=== PATIENT | male | born 1945 | race Caucasian/White ===

== ENCOUNTER 2019-01-19 08:18 | Outpatient (CLI) | payer OTHER, MEDICARE ==
--- NOTE | 2019-01-24 08:52 | OP Clinic Progress Note ---
DATE OF VISIT: 01/19/2019 SUBJECTIVE: Jono Toussaint is a 73-year-old male presenting to the clinic today for followup of right ankle pain and right great toe pain. The patient has been placed in an ankle brace a few weeks ago and states that he was having some calf pain after being in the ankle brace all day. He states that his right great toe is feeling better but is not completely better at this time. He also did not notice that there was a small blister/bulla or cyst on the lateral side of his great toe on the right foot. That was a surprise for him today. The patient does not admit to any fevers, chills, nausea, vomiting, shortness of breath or chest pain. He has very mild pain only at times when walking on that right great toe now. He is having pain in the right ankle, however, and would like to consider an injection today to see if it can help it feel better. OBJECTIVE: Vitals: Temperature 98.4 degrees Fahrenheit, heart rate 68, respiration rate 22, blood pressure 149/77. O2 saturation is 96% on room air. Vascular: 2+ DP and PT pulses bilateral feet. Capillary refill time is less than 3 seconds to the toes bilaterally. There is no edema noted bilaterally. Dermatologic: There is no erythema or ecchymosis noted at this time. There is a bulla noted on the lateral aspect of the right great toe that is fairly firm that was deroofed today to reveal a gelatinous clear fluid. There was very mild fluid in it. There is mild warmth still around the right ankle area. Musculoskeletal: There is pain on palpation noted at the anterolateral ankle at the site where a portal for a lateral arthroscope would go. The patient has no pain with range of motion of the right great toe or the IPJ of the right great toe. He does have pain with direct palpation, more of a [id number] squeeze type of palpation of the right great toe. The pain is located on the lateral side of the right great toe, getting closer to that area where the bulla was. There was a notable palpable what feels like ganglion type cyst possibly noted in the lateral aspect of the right great toe, distal phalanx. There is no pain with range of motion of the ankle joint, but there is some pain in the sinus tarsi area with range of motion of the subtalar joint. Neurologic: Light touch sensation is intact to the toes bilaterally. ASSESSMENT AND PLAN: 1. Right lateral hallux bulla/possible cyst/open wound. 2. Right ankle pain. We discussed the x-rays today of the foot and ankle that we had previously and how they were essentially negative except for some arthritic changes. We discussed all of the locations of these arthritic changes. We discussed that due to the pain in the ankle at the anterolateral area as well as narrowing noted on the ankle x-rays, we decided to do an injection in the ankle of the right lower extremity. Risks and benefits were discussed with the patient including but not limited to bleeding, infections and steroid flare. PROCEDURE #1: Steroid injection into the right ankle was performed today. Alcohol swab was utilized to cleanse the right anterolateral ankle and an injection consisting of 1 cc of 2% lidocaine plain, 1 cc of 25% Marcaine plain, 0.5 cc of dexamethasone 4 mg/mL and 0.5 cc of Kenalog 40 mg/mL were injected into right ankle. The patient admitted immediate relief upon standing today. Hemostasis was obtained with pressure and a Band-Aid was applied. We discussed with the patient the importance of breaking into the ankle brace slowly and seeing if that helps his calf muscles feel any better as well. We will see if this helps to protect the ankle. If this does help, we will consider a custom AFO in order to have the patient go forward with the protection around the ankle. If this does not work then we will consider a steroid injection in the subtalar joint if this is not improving from the ankle joint injection today. We will also consider monitoring carefully the right great toe for any improvement or not. If it is not improving in the next three weeks with putting a spacer between the first and second toes to keep the pressure off that lateral side of the great toe then we will consider further imaging with an MRI to see if there is any sort of soft tissue mass inside the toe. If so, we will consider removal if needed. The patient is not having significant pain with the hammertoes bilaterally at this time, nor the bunion necessarily, so we will likely hold off on anything like that unless needed. The patient has no further questions or concerns and is planning on watching his right great toe carefully as I am concerned it is overall still much larger than the left and it seems more of an osseous type of size discrepancy. We will watch this carefully and consider MRI at our next visit if he is not improving. Return to clinic in three weeks over at the [facility] for followup. See the above plan. Ric Egan D.P.M.(Dictated/not signed) /[employer] [id number] /mab MTDD
== END 2019-01-19 08:45 ==
LOC: POD 08:18
PROVIDERS: ATTEND Podiatrist Foot & Ankle Surgery
DX: M79.674 Pain in right toe(s) (principal); M25.571 Pain in right ankle and joints of right foot
CPT/HCPCS: 20605; 99212

== ENCOUNTER 2019-03-07 09:24 | Outpatient (CLI) | payer OTHER, MEDICARE ==
[2019-03-07 09:49] LABS: BASOPHILS % 0.3 % (0.0-1.5); NEUTROPHILS # 3.2 # k/uL (1.4-7.7)
[2019-03-07 10:13] LABS: eGFR (Non-African) > 60
== END 2019-03-07 09:26 ==
LOC: LAB 09:24
PROVIDERS: ATTEND Podiatrist Foot & Ankle Surgery
DX: Z00.00 Encounter for general adult medical examination without abnormal findings (principal)
CPT/HCPCS: 36415; 80053; 85025